=== PATIENT | male | born 1955 | race Caucasian/White ===

== ENCOUNTER 2016-12-05 21:46 | Emergency (ER) | payer OTHER, MEDICARE ==
[~2016-12-05 21:46] MED LIST: DAILY MULTIPLE1 EACH PO; FLUVOXAMINE MAL25 M1 PO; HYDROXYZINE50 MG PO; LOPID600 MG PO; NEXIUM40 M1 PO; SYMBICORT 16010.2 GM INH; TRIAMCINOLONE 0.1 GM TOP; VITAMIN D250000 UNIT PO
--- NOTE | 2016-12-05 22:36 | ED GENERAL ADULT ---
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 Exam Limitations: no limitations Vital Signs & Intake/Output Vital Signs & Intake/Output Vital Signs Date Time Temp Pulse Resp B/P B/P Pulse O2 O2 Flow FiO2 Mean Ox Delivery Rate 12/06 0112 98.6 70 18 148/74 97 Room Air 12/05 2307 97 12/05 2203 98.6 67 20 157/72 98 Room Air ED Intake and Output 12/06 0000 12/05 1200 Intake Total Output Total Balance Patient 138 lb Weight Allergies Coded Allergies: Sulfa (Sulfonamide Antibiotics) (UNKNOWN 05/31/16) aspirin (UNKNOWN 05/31/16) ciprofloxacin (From CIPRO) (UNKNOWN 05/31/16) erythromycin base (UNKNOWN 05/31/16) latex (UNKNOWN 05/31/16) penicillamine (SOB RASH ITCHY 05/31/16) tetracycline (RASH SOB ITCHY 05/31/16) penicillin G (NAUSEA 05/31/16) Reconcile Medications Budesonide/Formoterol Fumarate (Symbicort 160-4.5 Mcg Inhaler) 160 MCG-4.5 MCG/ ACTUATION HFA.AER.AD 1 PUF INH BID ASTHMA (Reported) Clindamycin HCl 300 MG CAPSULE 2 CAP PO BID ASPIRATION PNA TAKE X 10 DAYS Clotrimazole (Athlete's Foot) 1 % CREAM..G. 1 RAJ TOP BID PRN ATHLETES FOOT ( Reported) [CUREL] 1 RAJ TOP DAILY SKIN (Reported) Doxazosin Mesylate (Cardura) 2 MG TABLET 1 TAB PO QPM PROSTATE (Reported) Ergocalciferol (Vitamin D2) (Vitamin D2) 50,000 UNIT CAPSULE 1 CAP PO Q 2 WEEKS SUPPLEMENT (Reported) Esomeprazole (Nexium) 40 MG CAPSULE.DR 1 CAP PO DAILY GI (Reported) Fluvoxamine Maleate 25 MG TABLET 1 TAB PO QHS MENTAL HEALTH (Reported) Gemfibrozil (Lopid) 600 MG TABLET 1 TAB PO BID CHOLESTEROL (Reported) Hydroxyzine HCl 25 MG TABLET 1 TAB PO 4XDAILY ITCHING (Reported) Lanolin Alcohol/Mo/W.pet/[place] (Eucerin Creme) 454 GM CREAM..G. 1 RAJ TOP BID BOTH FEET (Reported) Lanolin Alcohol/Mo/W.pet/[place] (Eucerin Creme) 454 GM CREAM..G. 1 RAJ TOP BID HANDS (Reported) Olanzapine (Zyprexa) 10 MG TABLET 1 TAB PO QHS MENTAL HEALTH (Reported) Prednisone 10 MG TABLET 1 TAB PO AD COPD DAY1/DAY2 4 TABS DAY3/DAY4 3 TABS DAY5/DAY6 2 TABS DAY 7 1 TAB Talc/Cellulos/Chloroxy/Aldioxa (Zeasorb Powder) 71 GM POWDER 1 RAJ TOP AD GROIN (Reported) Triage Note: PER STAFF STARTED LAST WEEK WITH BACK PAIN, TREATED WITH NSAIDS, YESTERDAY HAD HICCUPS, TONIGHT ON A PACING PROGRAM WITH EATING, D/T DIVERTICULUM POUCH. WAS GASPING WITH DINNER, AT APPROX 7 PM CO PAIN TO CHEST AFTER DINNER. Triage Nurses Notes Reviewed? yes Onset: Gradual Duration: constant Timing: recent history Severity: moderate Severity Numbers: 5 HPI: Patient is a 61-year-old male with a past medical history of asthma, COPD, cerebral palsy, dysphagia, who presents emergency room with a caregiver in which patient lives in a fdc in which patient caregiver state that he was complaining of generalized back pain last week which has resolved with BenGay and Tylenol however yesterday staff noted patient to be hiccuping significantly however this has resolved in which today patient was eating dinner, in which the caregiver states that patient was eating "really fast" where he noted to be gasping for air however no choking episode had occurred and since patient has been complaining of shortness of breath. Patient denies any fever chills sore throat chest pain arm pain jaw pain nausea vomiting back pain abdominal pain. Denies any hemoptysis (KUMAR FERRELL) Past History Travel History Traveled to [place] past 21 day No Medical History Any Pertinent Medical History? see below for history Neurological: TIA, INTELLECTUAL DISABILITY CP. 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 No (KUMAR FERRELL) Review of Systems Review of Systems Constitutional: Reports: no symptoms. EENTM: Reports: no symptoms. Respiratory: Reports: see HPI, short of breath. Cardiovascular: Reports: see HPI. GI: Reports: see HPI. Genitourinary: Reports: no symptoms. Musculoskeletal: Reports: see HPI. Skin: Reports: no symptoms. Neurological/Psychological: Reports: no symptoms. Hematologic/Endocrine: Reports: no symptoms. Immunologic/Allergic: Reports: no symptoms. All Other Systems: Reviewed and Negative (KUMAR FERRELL) Physical Exam Physical Exam General Appearance: no apparent distress, alert, comfortable Head: atraumatic Eyes: Bilateral: normal appearance, PERRL. Ears, Nose, Throat: normal pharynx, normal ENT inspection, hearing grossly normal Neck: normal inspection, supple Respiratory: chest non-tender, no respiratory distress, wheezing Cardiovascular: regular rate/rhythm Peripheral Pulses: 2+ radial (R), 2+ radial (L) Gastrointestinal: normal bowel sounds, soft, non-tender, no organomegaly Back: normal inspection, normal range of motion, no vertebral tenderness Extremities: normal inspection, normal capillary refill, normal range of motion Neurologic/Psych: no motor/sensory deficits, alert Skin: intact, normal color, warm/dry Core Measures ACS in differential dx? No CVA/TIA Diagnosis: No Severe Sepsis Present: No Septic Shock Present: No (KUMAR FERRELL) Progress Differential Diagnoses I considered the following diagnoses in my evaluation of the patient: [COPD exacerbation, myocardial infarction, gastroenteritis, peptic ulcer disease, pancreatitis, PE, pneumothorax, aspiration pneumonia, pneumonia, upper respiratory infection] Plan of Care: Orders Procedure Date/time Status TROPONIN LEVEL 12/05 2245 Complete LIPASE 12/05 2245 Complete COMPREHENSIVE METABOLIC PANEL 12/05 2245 Complete CBC WITHOUT DIFFERENTIAL 12/05 2245 Complete AMYLASE 12/05 2245 Complete EKG 12/058 Active Laboratory Tests 12/06/16 0011: Anion Gap 10, Estimated GFR > 60, BUN/Creatinine Ratio 20.0, Glucose 95, Calcium 9.2, Total Bilirubin 0.5, AST 22, ALT 36, Alkaline Phosphatase 116, Troponin I < 0.01, Total Protein 7.2, Albumin 3.9, Globulin 3.3, Albumin/Globulin Ratio 1.2, Amylase 62, Lipase 153, CBC w Diff NO MAN DIFF REQ, RBC 3.63 L, MCV 86.9, MCH 29.8, RDW 13.2, MPV 6.0 L, Gran % 78.1 H, Lymphocytes % 11.1 L, Monocytes % 7.0, Eosinophils % 3.0, Basophils % 0.8, Absolute Granulocytes 5.4, Absolute Lymphocytes 0.8 L, Absolute Monocytes 0.5, Absolute Eosinophils 0.2, Absolute Basophils 0.1, PUBS MCHC 34.3 Patient on initial examination was in no apparent distress has nontender abdomen and denies any chest pain. Patient does have audible wheezing upon auscultation and posterior lung montiel. Patient had positive results for pneumonia most likely aspiration. Patient was given dosing of clindamycin in the emergency room and steroids. Patient upon discharge was afebrile no leukocytosis and patient will be treated initially outpatient for concerns of aspiration pneumonia and COPD. Oxygen saturation 98% room air. Patient is in no respiratory distress. Patient had nontender abdomen Wheezing has improved with nebulizer treatment. Patient was afebrile nontoxic appearing Discussed disposition plan with Dr. Bagley who agrees. Patient does have significant allergies in which up-to-date recommends clindamycin 600 mg twice a day For concerns of aspiration pneumonia (LOYDA THOMAS,KUMAR) Diagnostic Imaging: Viewed by Me: Radiology Read. Radiology Impression: PNEUMONIA Initial ED EKG: normal intervals, normal p-waves, NSR, 66 BPM, RBBB Prior EKG: unchanged Comments: PATIENT: KUMAR VILA PRESENT AGE: 61 PATIENT ACCOUNT NO: [id number] : 55 LOCATION: [facility] ORDERING PHYSICIAN: KUMAR THOMAS SERVICE DATE: 12/05/16 EXAM TYPE: RAD - XRY-CHEST XRAY, PA AND LATERAL EXAMINATION: XR CHEST CLINICAL INFORMATION: Shortness of breath COMPARISON: 05/31/2016 TECHNIQUE: 2 views of the chest were obtained. FINDINGS: Lung volumes are symmetric. There is a region of heterogeneous opacity in the left perihilar region which is new compared to prior. There is also increased patchy opacity at the bilateral lung bases. No pneumothorax is seen. No significant pleural effusion. The cardiomediastinal contour is unremarkable. Degenerative changes are noted in the spine. IMPRESSION: Left perihilar and bibasilar opacities, suspicious for pneumonia. Radiographic followup after treatment/resolution of symptoms is recommended. (KUMAR FERRELL) Departure Departure Disposition: HOME OR SELF CARE Condition: Stable Clinical Impression Primary Impression: Aspiration pneumonia Secondary Impressions: COPD (chronic obstructive pulmonary disease) Referrals: MINE CHOW,RENA Limon (PCP/Family) Additional Instructions: As discussed begin the prescriptions of clindamycin as directed for the full course and begin the prescription of prednisone for the full course. Continue home medications as directed especially your breathing treatments. If symptoms worsen return to emergency room. If no better in 2 days follow-up with your primary care doctor Departure Forms: Customer Survey General Discharge Information Prescriptions: Current Visit Scripts Clindamycin HCl 2 CAP PO BID #40 CAP TAKE X 10 DAYS Prednisone 1 TAB PO AD #19 TAB DAY1/DAY2 4 TABS DAY3/DAY4 3 TABS DAY5/DAY6 2 TABS DAY 7 1 TAB (KUMAR FERRELL) PA/SKIN LIFTER BACON Co-Sign Statement Statement: ED Attending supervision documentation- [] I saw and evaluated the patient. I have also reviewed all the pertinent lab results and diagnostic results. I agree with the findings and the plan of care as documented in the PA's/SKIN LIFTER BACON's documentation. [x] I have reviewed the ED Record and agree with the PA's/SKIN LIFTER BACON's documentation. [] Additions or exceptions (if any) to the PAs/SKIN LIFTER BACON's note and plan are summarized below: [] (TABITHA CHOW,IVÁN Enrique) Critical Care Note Critical Care Note Critical Care Time: non-applicable (KUMAR FERRELL)
[2016-12-05] MEDS ORDERED: ZEASORB POWDER71 GM TOP (22:57)
[2016-12-05] MEDS ORDERED: SYMBICORT 16010.2 GM INH (22:58)
[2016-12-05] MEDS ORDERED: EUCERIN CREME454 GM TOP ×2 (22:58→23:02)
[2016-12-05] MEDS ORDERED: ATHLETE'S FOO35.4 GM TOP (23:00)
[2016-12-05] MEDS ORDERED: CUREL TOP (23:01)
[2016-12-05] MEDS ORDERED: HYDROXYZINE HCL25 M2 PO (23:02)
[2016-12-05] MEDS ORDERED: CARDURA2 M1 PO (23:02)
[2016-12-05] MEDS ORDERED: FLUVOXAMINE MAL25 M1 PO (23:03)
[2016-12-05] MEDS ORDERED: ZYPREXA10 M1 PO (23:03)
--- NOTE | 2016-12-05 23:15 | RADIOLOGY REPORT ---
EXAMINATION: XR CHEST CLINICAL INFORMATION: Shortness of breath COMPARISON: 05/31/2016 TECHNIQUE: 2 views of the chest were obtained. FINDINGS: Lung volumes are symmetric. There is a region of heterogeneous opacity in the left perihilar region which is new compared to prior. There is also increased patchy opacity at the bilateral lung bases. No pneumothorax is seen. No significant pleural effusion. The cardiomediastinal contour is unremarkable. Degenerative changes are noted in the spine. IMPRESSION: Left perihilar and bibasilar opacities, suspicious for pneumonia. Radiographic followup after treatment/resolution of symptoms is recommended.
[2016-12-06 00:29] LABS: ABSOLUTE BASOPHIL COUNT 0.1 /CUMM (0.0-0.2); ABSOLUTE EOSINOPHIL COUNT 0.2 /CUMM (0.0-0.7); ABSOLUTE GRANULOCYTE CT 5.4 /CUMM (1.4-6.5); ABSOLUTE LYMPH COUNT 0.8 /CUMM (1.2-3.4); ABSOLUTE MONOCYTE COUNT 0.5 /CUMM (0.10-0.60); BASOPHIL % 0.8 % (0.0-2.0); GRANULOCYTE % 78.1 % (42.2-75.2); HEMATOCRIT 31.6 % (42-52); MEAN CORPUSCULAR HGB 29.8 PG (27.0-31.0); MEAN CORPUSCULAR HGB CONC 34.3 G/DL (33.0-37.0); MEAN CORPUSCULAR VOLUME 86.9 FL (80.0-94.0); PLATELET COUNT 283 /CUMM (130-400); RBC DISTRIBUTION WIDTH 13.2 % (11.5-14.5); RED BLOOD CELL CT 3.63 /CUMM (4.70-6.10)
[2016-12-06] MEDS ORDERED: CLINDAMYCIN HC300 M1 PO (01:01)
[2016-12-06] MEDS ORDERED: PREDNISONE10 M2 PO (01:01)
[2016-12-06 01:12] VITALS: BP 148/74
== END 2016-12-06 01:14 ==
LOC: ERH 21:46
PROVIDERS: Physician Assistant
DX: J69.0 Pneumonitis due to inhalation of food and vomit (principal); J44.9 Chronic obstructive pulmonary disease, unspecified; R05 Cough
CPT/HCPCS: 1263; 93005; 93010